=== PATIENT | female | born 1975 | race Caucasian/White ===

== ENCOUNTER 2020-04-16 11:01 | Outpatient (CLI) | payer BC, SELFPAY ==
--- NOTE | ~2020-04-16 | XR_ITS ---
EXAMINATION: XR chest 2V 04/16/2020 13:10 INDICATION: Covid. Shortness of breath and cough. PROCEDURE: 2 view chest COMPARISON: Comparison to multiple prior studies sequentially, with oldest reviewed study dated 11/18. FINDINGS: The lungs are clear. The cardiomediastinal silhouette is within normal limits. There are no pleural effusions. There is no pneumothorax suspected. IMPRESSION: 1: NO ACUTE CARDIOPULMONARY DISEASE. Reviewed, dictated and finalized at location A. X SPOOLER
[2020-04-17 22:42] LABS: SARS-CoV-2 RNA PCR Negative
== END 2020-04-16 11:02 | disposition home or self-care (01) ==
LOC: CHSLAB 11:06
PROVIDERS: PCP Internal Medicine; Visit Provider Internal Medicine
DX: Z20.828 Contact with and (suspected) exposure to other viral communicable diseases (principal)
CPT/HCPCS: 71046; 87635; C9803; U0003